=== PATIENT | male | born 1975 | race Caucasian/White ===

== ENCOUNTER 2017-04-20 06:48 | Emergency (ER) | payer OTHER ==
[~2017-04-20] VITALS: Ht 185.4 cm; Wt 93.0 kg
[2017-04-20] MEDS ORDERED: MUCINEX FAST-M180 M4 PO (06:59)
[2017-04-20] MEDS ORDERED: SUDAFED PE PRE1 EAC3 PO (07:00)
--- NOTE | 2017-04-22 14:02 | EKG ---
[facility] [address] [facility] [place] [address] Signed Normal sinus rhythm Normal ECG No previous ECGs available Confirmed by NINO SANCHEZ MD ([id number] on 04/22/2017 2:02:47 PM Electronically Signed By: NINO SANCHEZ MD 04/22/17 1402 PATIENT NAME: ANG DAVE ASHLEE Electrocardiogram DATE OF : 75 PHYSICIAN: NINO SANCHEZ MD REPORT #: [id number] REPORT IS CONFIDENTIAL AND NOT TO BE RELEASED WITHOUT AUTHORIZATION
== END 2017-04-20 09:32 | disposition home or self-care (01) ==
LOC: ED 06:48
DX: J11.1 Influenza due to unidentified influenza virus with other respiratory manifestations (principal)
CPT/HCPCS: 71046; 80053; 85025; 87502; 93005; 93010; 96374; 99284; J1885; J7030